=== PATIENT | male | born 1975 | race Caucasian/White ===

== ENCOUNTER → 2017-08-01 | Outpatient (CLI) | payer SELFPAY ==
--- NOTE | 2017-08-01 12:02 | CT ---
HISTORY: Family history of cardiac issues with left-sided chest pain for 1 month. Cardiac calcium scoring Technique: Multiple axial images of the chest were obtained on a [address] from the aortic arch to the base of the heart with retrospective cardiac gating. Noncontrast evaluation of th e heart was performed for calcium scoring with prospective gating. 3D reconstructions and vessel artem lysis were performed on a vital imaging workstation. Dose reduction techniques including Automated E xposure Control (AEC) and adjustment of mA and kV were utilized. Findings: A total calcium score of 3 is observed. The score results in a very unlikely chance of significant c oronary events given the age and sex matched cohort analysis. Evaluation of the coronary arterial system demonstrates no significant disease of the right coronary artery and left anterior descending coronary artery. Minimal disease was seen within the left main c oronary artery and left circumflex coronary artery. Extracardiac findings: No pathologically enlarged lymphadenopathy can be observed. The aortic arch is unremarkable in its a ppearance with normal vascular configuration. No significant pericardial effusion can be identified. The visualized portions of the lung parenchyma are unremarkable. No lytic or blastic lesions can b e identified within the visualized bony thorax. The visualized portions of the abdomen demonstrate n ormal perfusion patterns of the spleen and liver. IMPRESSION: Total calcium score of 3 resulting in a very unlikely chance of significant coronary artery events. Reported By:
== END ==
LOC: RAD 09:07
PROVIDERS: ATTEND Nurse Practitioner Family
DX: Z13.6 Encounter for screening for cardiovascular disorders (principal)